=== PATIENT | male | born 2000 | race Caucasian/White ===

== ENCOUNTER 2022-07-09 15:44 | Emergency (ER) | payer OTHER ==
[2022-07-09 15:55] VITALS: BP 139/84
[2022-07-09] MEDS ORDERED: NORCO 10-325 T1 EACH PO (18:50)
[2022-07-09] MEDS ORDERED: CEPHALEXIN500 M1 PO (18:50)
== END 2022-07-09 19:00 | disposition home or self-care (01) ==
LOC: ED 15:44
DX: S68.122A Partial traumatic metacarpophalangeal amputation of right middle finger, initial encounter (principal); S68.124A Partial traumatic metacarpophalangeal amputation of right ring finger, initial encounter; W27.0XXA Contact with workbench tool, initial encounter; Y92.59 Other trade areas as the place of occurrence of the external cause; Y99.0 Civilian activity done for income or pay
CPT/HCPCS: 90714; J0690; J2270; J2405; J3010